=== PATIENT | female | born 1985 | race American Indian/Alaskan Native ===

== ENCOUNTER 2017-04-18 08:32 | Emergency (ER) | payer SELFPAY ==
[2017-04-18 08:45] VITALS: BP 120/75
--- NOTE | 2017-04-18 19:09 | Emergency Department Report ---
Entered by AWA ADAMS, acting as scribe for IRIS WHITE PAC. - General Chief complaint: Skin Rash Stated complaint: RASH/ITCHY BODY Time Seen by Provider: 04/18/17 10:26 Source: patient Mode of arrival: Ambulatory Limitations: No Limitations - History of Present Illness Initial comments: 31 year old female with PMHx of eczema presents to ED with rash to bilateral arms, bilateral LE, and chest for 2 days. Patient reports she has been itching all over her body and states its a different type of rash than usual. Patient states she is allergic to shrimp but ate shrimp 3 days ago and took Benadryl before eating shrimp. Pt has a known allergy to shrimp and states. She rates pain as 10/10 in severity, and describes pain as itchy. Patient also states possible outbreak from getting her nails done 2 weeks ago. Patient denies chest pain, chest tightness, difficulty breathing/swallowing, SOB, fever, chills, or pus/drainage. No known drug allergies, but reports to allergy of shrimp. Pt denies any chance of at this time and denies testing. MD complaint: rash -: days(s) (2) Location: chest, LUE, RUE, LLE, RLE Severity: severe Severity scale (0 -10): 10 Quality: burning Consistency: constant Improves with: none Worsens with: none Context: other (sh) Associated symptoms: denies other symptoms, itching Treatments Prior to Arrival: Benadryl - Related Data Previous Rx's Medication Instructions Recorded Last Taken Type Naproxen [Naprosyn TAB] 500 mg PO BID #20 tablet 06/28/14 Unknown Rx Ondansetron [Zofran Odt] 4 mg PO Q6H #10 tab.rapdis 06/28/14 Unknown Rx Haloperidol [Haldol] 2 mg PO QDAY #30 tablet 02/08/15 Unknown Rx diphenhydrAMINE [Benadryl] 50 mg PO QHS #30 capsule 02/08/15 Unknown Rx Acetaminophen/Codeine [Tylenol #3] 1 tab PO Q6H PRN #10 tab 03/28/15 Unknown Rx Promethazine [Phenergan TAB] 25 mg PO Q6HR PRN #12 tab 03/28/15 Unknown Rx Doxylamine/Pyridoxine HCl 1 each PO Q6HR PRN #30 tablet. 12/10/15 Unknown Rx [Kelley Moore 10-10 mg Tablet] Nitrofurantoin [place]/M-Cryst 100 mg PO Q12HR #13 capsule 12/10/15 Unknown Rx [Macrobid CAP] Vit W-Ca,Fe,FA(<1 mg) 1 each PO QDAY #30 tablet 12/10/15 Unknown Rx [ Vitamins] Hydrocortisone 2.5% [Hytone 2.5% 1 applicatio TP TID PRN #1 tube 04/18/17 Unknown Rx CREAM] predniSONE [Deltasone] 20 mg PO QDAY #5 tab 04/18/17 Unknown Rx Allergies Allergy/AdvReac Type Severity Reaction Status Date / Time No Known Allergies Allergy Verified 02/05/15 14:38 Abscess Boil HPI - HPI Chief Complaint: Skin Rash Stated Complaint: RASH/ITCHY BODY Duration: 3 Days Location: Lower Extremity History: No Fever, No Pain, No Purulent Drainage, No Numbness, No Foreign Body, No Previous History, No Insect Bite Home Medications: Previous Rx's Medication Instructions Recorded Last Taken Type Naproxen [Naprosyn TAB] 500 mg PO BID #20 tablet 06/28/14 Unknown Rx Ondansetron [Zofran Odt] 4 mg PO Q6H #10 tab.rapdis 06/28/14 Unknown Rx Haloperidol [Haldol] 2 mg PO QDAY #30 tablet 02/08/15 Unknown Rx diphenhydrAMINE [Benadryl] 50 mg PO QHS #30 capsule 02/08/15 Unknown Rx Acetaminophen/Codeine [Tylenol #3] 1 tab PO Q6H PRN #10 tab 03/28/15 Unknown Rx Promethazine [Phenergan TAB] 25 mg PO Q6HR PRN #12 tab 03/28/15 Unknown Rx Doxylamine/Pyridoxine HCl 1 each PO Q6HR PRN #30 tablet. 12/10/15 Unknown Rx [Kelley Moore 10-10 mg Tablet] Nitrofurantoin [place]/M-Cryst 100 mg PO Q12HR #13 capsule 12/10/15 Unknown Rx [Macrobid CAP] Vit W-Ca,Fe,FA(<1 mg) 1 each PO QDAY #30 tablet 12/10/15 Unknown Rx [ Vitamins] Hydrocortisone 2.5% [Hytone 2.5% 1 applicatio TP TID PRN #1 tube 04/18/17 Unknown Rx CREAM] predniSONE [Deltasone] 20 mg PO QDAY #5 tab 04/18/17 Unknown Rx Allergies/Adverse Reactions: Allergies Allergy/AdvReac Type Severity Reaction Status Date / Time No Known Allergies Allergy Verified 02/05/15 14:38 ED Review of Systems Comment: All other systems reviewed and negative Constitutional: denies: chills, fever, weakness Respiratory: denies: cough, shortness of breath, wheezing Cardiovascular: denies: chest pain, palpitations Gastrointestinal: denies: abdominal pain, nausea, vomiting, diarrhea Musculoskeletal: denies: back pain, joint swelling, arthralgia Skin: rash. denies: lesions Neurological: denies: headache, weakness, numbness, paresthesias ED Past Medical Hx - Past Medical History Previous Medical History?: Yes Hx Psychiatric Treatment: Yes (schizophrenia) Additional medical history: Vaginal delivery x 3, Miscarriage, excema - Surgical History Past Surgical History?: Yes - Social History Smoking Status: Current Every Day Smoker Substance Use Type: None - Medications Home Medications: Home Medications Medication Instructions Recorded Confirmed Last Taken Type Naproxen [Naprosyn TAB] 500 mg PO BID #20 tablet 06/28/14 Unknown Rx Ondansetron [Zofran Odt] 4 mg PO Q6H #10 tab.rapdis 06/28/14 Unknown Rx Haloperidol [Haldol] 2 mg PO QDAY #30 tablet 02/08/15 Unknown Rx diphenhydrAMINE [Benadryl] 50 mg PO QHS #30 capsule 02/08/15 Unknown Rx Acetaminophen/Codeine [Tylenol #3] 1 tab PO Q6H PRN #10 tab 03/28/15 Unknown Rx Promethazine [Phenergan TAB] 25 mg PO Q6HR PRN #12 tab 03/28/15 Unknown Rx Doxylamine/Pyridoxine HCl 1 each PO Q6HR PRN #30 tablet. 12/10/15 Unknown Rx [Diclegis Dr 10-10 mg Tablet] Nitrofurantoin [place]/M-Cryst 100 mg PO Q12HR #13 capsule 12/10/15 Unknown Rx [Macrobid CAP] Vit W-Ca,Fe,FA(<1 mg) 1 each PO QDAY #30 tablet 12/10/15 Unknown Rx [ Vitamins] Hydrocortisone 2.5% [Hytone 2.5% 1 applicatio TP TID PRN #1 tube 04/18/17 Unknown Rx CREAM] predniSONE [Deltasone] 20 mg PO QDAY #5 tab 04/18/17 Unknown Rx ED Physical Exam - General Limitations: No Limitations General appearance: alert, in no apparent distress - Head Head exam: Present: atraumatic, normocephalic - Neck Neck exam: Present: normal inspection, full ROM. Absent: tenderness, meningismus - Respiratory Respiratory exam: Present: normal lung sounds bilaterally. Absent: respiratory distress, wheezes, rales, rhonchi, stridor - Cardiovascular Cardiovascular Exam: Present: regular rate, normal rhythm, normal heart sounds. Absent: systolic murmur, diastolic murmur, rubs, gallop - GI/Abdominal GI/Abdominal exam: Present: soft, normal bowel sounds. Absent: distended, tenderness, guarding, rebound, rigid, diminished bowel sounds - Extremities Exam Extremities exam: Present: normal inspection, full ROM, normal capillary refill. Absent: tenderness, pedal edema, joint swelling - Back Exam Back exam: Present: normal inspection, full ROM. Absent: tenderness, paraspinal tenderness, vertebral tenderness - Neurological Exam Neurological exam: Present: alert, oriented X3 - Psychiatric Psychiatric exam: Present: normal affect, normal mood - Skin Skin exam: Present: rash (diffuse rash noted on bilateral upper and lower extermities, appears to be thickend skin, no redness, swelling, oozing, or pus noted of the skin ) ED Course Vital Signs 04/18/17 08:40 Temperature 99 F Pulse Rate 91 H Respiratory 16 Rate Blood Pressure 120/75 O2 Sat by Pulse 100 Oximetry ED Medical Decision Making - Medical Decision Making A/P: dermatitis/ allergic reaction 1. pt was given solu-medrol 125 mg injection here in the ED. Pt was given oral prednisone and hydrocortisone cream to apply to the rash. Pt's vitals were stable upon discharge, no signs of resp distress, or anaphylasis, alert and oreinted x 3. No chest pain or chest tightness on exam. No fever or chills. 2. Dermatology referral provided for patient in the ED today. ED Disposition Clinical Impression: Dermatitis, Allergic (intrinsic) eczema Disposition: DC-01 TO HOME OR SELFCARE Is pt being admited?: No Does the pt Need Aspirin: No Condition: Good Instructions: Contact Dermatitis (ED), Eczema (ED) Additional Instructions: please start the oral steriod tomorrow, avoid NSAIDs with this medication. This includes: any advil, aleve, or motorins. Please follow-up with PCP in 3-5 days. Return to the ED if you develop any chest pain, tightness, fever, or chills or any other acute worsening. Prescriptions: Hydrocortisone 2.5% [Hytone 2.5% CREAM] 1 applicatio TP TID PRN #1 tube PRN Reason: Rash predniSONE [Deltasone] 20 mg PO QDAY #5 tab Referrals: PRIMARY CARE,MD [Primary Care Provider] - 3-5 Days ROSAURA SANDERS MD [Staff Physician] - 3-5 Days [facility] [place] - 3-5 Days Forms: Work/School Release Form(ED) This documentation as recorded by the BRYAN mcnair PEARL,accurately reflects the service I personally performed and the decisions made by CHRISTOPHER flowers KRISHNA S. , PAC.
== END 2017-04-18 10:57 | disposition home or self-care (01) ==
LOC: ED 08:32
DX: L30.9 Dermatitis, unspecified (principal); L20.84 Intrinsic (allergic) eczema; F20.9 Schizophrenia, unspecified; F17.200 Nicotine dependence, unspecified, uncomplicated
CPT/HCPCS: 96372; 99281; J2930

== ENCOUNTER 2017-08-26 13:44 | Emergency (ER) | payer SELFPAY ==
[2017-08-26 14:12] VITALS: BP 109/66
== END 2017-08-27 07:21 | disposition left against medical advice (07) ==
LOC: ED 13:44
DX: R21 Rash and other nonspecific skin eruption (principal); Z53.21 Procedure and treatment not carried out due to patient leaving prior to being seen by health care provider

== ENCOUNTER 2017-11-04 17:36 | Emergency (ER) | payer MEDICAID ==
[2017-11-04] MEDS ORDERED: ZOFRAN ODT PO ONE (18:13)
[2017-11-04] MEDS ORDERED: TYLENOL PO ONE (18:13)
--- NOTE | 2017-11-04 18:19 | Emergency Department Report ---
HPI - General Chief Complaint: Back Pain/Injury Time Seen by Provider: 11/04/17 17:57 - HPI HPI: 32-year-old 5 para 31 miscarriage -[place] female that presents to the emergency room complaining of back pain with nausea and vomiting since last night. Patient reports that she is 6 weeks . She reports that she 's had flank pain left greater than right with some mild dysuria. Patient reports that the pain is worse with deep breathing. She denies any history of ectopic pregnancies. She reports she said nothing for pain. [facility]. ED Past Medical Hx - Past Medical History Hx Psychiatric Treatment: Yes (schizophrenia) Additional medical history: Vaginal delivery x 3, Miscarriage, excema - Social History Smoking Status: Current Some Day Smoker Substance Use Type: None - Medications Home Medications: Home Medications Medication Instructions Recorded Confirmed Last Taken Type Naproxen [Naprosyn TAB] 500 mg PO BID #20 tablet 06/28/14 Unknown Rx Ondansetron [Zofran Odt] 4 mg PO Q6H #10 tab.rapdis 06/28/14 Unknown Rx Haloperidol [Haldol] 2 mg PO QDAY #30 tablet 02/08/15 Unknown Rx diphenhydrAMINE [Benadryl] 50 mg PO QHS #30 capsule 02/08/15 Unknown Rx Acetaminophen/Codeine [Tylenol #3] 1 tab PO Q6H PRN #10 tab 03/28/15 Unknown Rx Promethazine [Phenergan TAB] 25 mg PO Q6HR PRN #12 tab 03/28/15 Unknown Rx Doxylamine Succinate/Vit B6 1 each PO Q6HR PRN #30 tablet. 12/10/15 Unknown Rx [Kelley Moore 10-10 mg Tablet] Nitrofurantoin [place]/M-Cryst 100 mg PO Q12HR #13 capsule 12/10/15 Unknown Rx [Macrobid CAP] Vit Calc,Iron,Folic 1 each PO QDAY #30 tablet 12/10/15 Unknown Rx [ Vitamins] Hydrocortisone 2.5% [Hytone 2.5% 1 applicatio TP TID PRN #1 tube 04/18/17 Unknown Rx CREAM] predniSONE [Deltasone] 20 mg PO QDAY #5 tab 04/18/17 Unknown Rx ED Review of Systems ROS: Stated complaint: BACK PAIN Other details as noted in HPI Constitutional: denies: chills, fever Eyes: denies: eye pain, eye discharge, vision change ENT: denies: ear pain, throat pain Respiratory: denies: cough, shortness of breath, wheezing Cardiovascular: denies: chest pain, palpitations Endocrine: no symptoms reported Gastrointestinal: nausea, vomiting. denies: abdominal pain, diarrhea Genitourinary: dysuria Musculoskeletal: back pain Skin: denies: rash, lesions Neurological: denies: headache, weakness, paresthesias Psychiatric: denies: anxiety, depression Hematological/Lymphatic: denies: easy bleeding, easy bruising Physical Exam - Physical Exam Vital Signs: Vital Signs 11/04/17 17:41 Temperature 98.1 F Pulse Rate 85 Respiratory 20 Rate Blood Pressure 118/51 O2 Sat by Pulse 100 Oximetry General: Alert and oriented no acute distress does appear to be in pain. Nontoxic in appearance. Physical Exam: GENERAL APPEARANCE: Well developed, well nourished, in no acute distress. SKIN: Inspection of the skin reveals no rashes, ulcerations or petechiae. HEENT: The sclerae were anicteric and conjunctivae were pink and moist. Extraocular movements were intact and pupils were equal, round, and reactive to light with normal accommodation. External inspection of the ears and nose showed no scars, lesions, or masses. Lips, teeth, and gums showed normal mucosa. The oral mucosa, hard and soft palate, tongue and posterior pharynx were normal. NECK: Supple and symmetric. There was no thyroid enlargement, CHEST: Normal AP diameter and normal contour without any kyphoscoliosis. LUNGS: Auscultation of the lungs revealed normal breath sounds without any other adventitious sounds or rubs. CARDIOVASCULAR: There was a regular rate and rhythm without any murmurs, gallops , rubs. The carotid pulses were normal and 2+ bilaterally without bruits. Peripheral pulses were 2+ and symmetric. ABDOMEN: Soft and nontender with normal bowel sounds. LYMPH NODES: No lymphadenopathy was appreciated in the neck, axillae or groin. MUSCULOSKELETAL: Gait was normal. There was no tenderness or effusions noted. Muscle strength and tone were normal. Bilateral CVA tenderness EXTREMITIES: No cyanosis, clubbing or edema. NEUROLOGIC: Alert and oriented x 3. Normal affect. Gait was normal. ED Course Vital Signs 11/04/17 17:41 Temperature 98.1 F Pulse Rate 85 Respiratory 20 Rate Blood Pressure 118/51 O2 Sat by Pulse 100 Oximetry ED Medical Decision Making - Radiology Data Impression #1. Single living intrauterine gestation at approximate 6 weeks in 2 days. #2. heart rate is 83 bpm consistent with bradycardic. #3 EDC by ultrasound 06/28/2018. - Medical Decision Making History of being evaluated by this provider [place]. Discussed the patient on 0 some Zofran for the nausea some Tylenol for the pain ordered a urinalysis and urine culture and urine test. Concern for possible pyelonephritis. Critical care attestation.: If time is entered above; I have spent that time in minutes in the direct care of this critically ill patient, excluding procedure time. ED Disposition Clinical Impression: Back pain Qualifiers: Back pain location: low back pain Chronicity: unspecified Back pain laterality : bilateral Sciatica presence: unspecified whether sciatica present Qualified Code(s): M54.5 - Low back pain Disposition: DC- TO HOME OR SELFCARE Is pt being admited?: No Does the pt Need Aspirin: No Condition: Stable Instructions: Acute Low Back Pain (ED) Additional Instructions: Please continue with Tylenol for pain. Is very importantly to follow up with Dr. Dunbar your [employer] [facility]. Referrals: PRIMARY CARE, [Primary Care Provider] - 3-5 Days [facility] [Provider Group] - 3-5 Days Forms: Work/School Release Form(ED)
[2017-11-04 18:20] LABS: Bacteria,Urine 1+ /HPF (Negative); Bilirubin,Urine NEG (Negative); Blood,Urine SM (Negative); Color,Urine Yellow (Yellow); Protein,Urine <15 mg/dL mg/dL (Negative); WBC,Urine < 1.0 /HPF (0.0-6.0)
[2017-11-04 18:29] LABS: HCG Qualitative,Urine Positive (Negative)
--- NOTE | 2017-11-04 21:18 | Ultrasound Report ---
FINAL REPORT PROCEDURE: US OB TRANSVAGINAL TECHNIQUE: Real-time transvaginal sonography of the uterus, placenta, amniotic fluid, adnexa, and fetus was performed with image documentation. Measurements were obtained to determine age/size. M-mode Doppler was used to document heartbeat. CPT 24590 HISTORY: CVA pain with tenderness bilateral COMPARISON: No prior studies are available for comparison. FINDINGS: CRL: 5mm, which corresponds to a gestational age of: 6weeks, 2 days. Yolk Sac: Normal. Embryonic Cardiac Activity: 83 beats per minute Gestational Sac: Normal. Right Ovary: Measures 3.1 x 2.2 x 2.0 centimeters and appears unremarkable. Left Ovary: Measures 1.9 x 1.2 x 2.4 centimeters and appears unremarkable. Estimated delivery date: 06/28/2018 IMPRESSION: 1. Single living intrauterine gestation at approximately 6 weeks and 2 days 2. heart rate is 83 beats per minute consistent with bradycardia. 3. EDC by US 06/28/2018.
--- NOTE | 2017-11-04 21:20 | Ultrasound Report ---
FINAL REPORT PROCEDURE: US OB < = 14 WEEKS FETUS TECHNIQUE: Real-time transabdominal sonography of the uterus, placenta, amniotic fluid, adnexa, and fetus was performed with image documentation. Measurements were obtained to determine age/size. M-mode Doppler was used to document heartbeat. CPT 56773 HISTORY: CVA pain with tenderness bilateral COMPARISON: No prior studies are available for comparison. FINDINGS: CRL: 5mm, which corresponds to a gestational age of: 6weeks, 2 days. Yolk Sac: Normal. Embryonic Cardiac Activity: 83 beats per minute Gestational Sac: Normal. Right Ovary: Measures 3.1 x 2.2 x 2.0 centimeters and appears unremarkable. Left Ovary: Measures 1.9 x 1.2 x 2.4 centimeters and appears unremarkable. Estimated delivery date: 06/28/2018 IMPRESSION: 1. Single living intrauterine gestation at approximately 6 weeks and 2 days 2. heart rate is 83 beats per minute consistent with bradycardia. 3. EDC by US 06/28/2018.
[2017-11-04 21:44] VITALS: BP 107/65
== END 2017-11-04 21:46 | disposition home or self-care (01) ==
LOC: ED 17:36
DX: O26.891 Other specified pregnancy related conditions, first trimester (principal); M54.5 Low back pain; R30.0 Dysuria; R10.9 Unspecified abdominal pain; O21.9 Vomiting of pregnancy, unspecified; O99.341 Other mental disorders complicating pregnancy, first trimester; F20.9 Schizophrenia, unspecified; O99.331 Smoking (tobacco) complicating pregnancy, first trimester; F17.200 Nicotine dependence, unspecified, uncomplicated; Z3A.01 Less than 8 weeks gestation of pregnancy
CPT/HCPCS: 76801; 76817; 81001; 81025; 99284; Q0162

== ENCOUNTER 2017-12-08 07:30 | Emergency (ER) | payer MEDICAID ==
[2017-12-08 08:30] VITALS: BP 110/64
[2017-12-08 09:14] LABS: Basophils # (Auto) 0.1 K/mm3 (0.0-0.1); Basophils % (Auto) 0.6 % (0.0-1.8); Eosinophils # (Auto) 0.1 K/mm3 (0.0-0.4); Eosinophils % (Auto) 1.4 % (0.0-4.3); Hemoglobin 12.9 gm/dl (10.1-14.3); Lymphocytes # (Auto) 2.7 K/mm3 (1.2-5.4); Lymphocytes % (Auto) 25.6 % (13.4-35.0); Mean Corpuscular HGB Conc 35 % (30-34); Mean Corpuscular Hemoglobin 29 pg (28-32); Mean Corpuscular Volume 84 fl (79-97); Monocytes # (Auto) 0.7 K/mm3 (0.0-0.8); Monocytes % (Auto) 6.8 % (0.0-7.3); Platelet Count 200 K/mm3 (140-440); Red Cell Distribution Width 14.2 % (13.2-15.2)
[2017-12-08 09:27] LABS: BUN/Creatinine Ratio 14; Blood Urea Nitrogen 7 mg/dL (7-17); Calcium 9.4 mg/dL (8.4-10.2); Hemolysis Index 7
== END 2017-12-08 11:26 ==
LOC: ED 07:30
DX: N93.9 Abnormal uterine and vaginal bleeding, unspecified (principal); Z53.21 Procedure and treatment not carried out due to patient leaving prior to being seen by health care provider
CPT/HCPCS: 36415; 80048; 84703; 85025; 86850; 86900; 86901

== ENCOUNTER 2018-02-11 02:55 | Emergency (ER) | payer OTHER, MEDICAID ==
[2018-02-11] MEDS ORDERED: TYLENOL ONE (06:30)
[2018-02-11] MEDS ORDERED: TYLENOL PO ONE (06:32)
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
[2018-02-11 07:43] VITALS: BP 126/74
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
== END 2018-02-11 08:39 | disposition home or self-care (01) ==
LOC: ED 02:55
DX: M54.2 Cervicalgia (principal); M79.1 Myalgia; F20.9 Schizophrenia, unspecified; V89.2XXA Person injured in unspecified motor-vehicle accident, traffic, initial encounter; Y93.89 Activity, other specified; Y92.89 Other specified places as the place of occurrence of the external cause; Y99.8 Other external cause status
CPT/HCPCS: 72040; 93005; 93010; 99283

== ENCOUNTER 2018-03-24 18:56 | Emergency (ER) | payer MEDICAID, OTHER ==
[2018-03-24 19:03] VITALS: BP 137/87
[2018-03-24 19:34] LABS: Basophils # (Auto) 0.1 K/mm3 (0.0-0.1); Basophils % (Auto) 0.8 % (0.0-1.8); Eosinophils # (Auto) 0.2 K/mm3 (0.0-0.4); Eosinophils % (Auto) 1.7 % (0.0-4.3); Hematocrit 35.5 % (30.3-42.9); Hemoglobin 11.3 gm/dl (10.1-14.3); Lymphocytes % (Auto) 27.6 % (13.4-35.0); Mean Corpuscular HGB Conc 32 % (30-34); Monocytes # (Auto) 0.7 K/mm3 (0.0-0.8); Monocytes % (Auto) 6.2 % (0.0-7.3); Platelet Count 283 K/mm3 (140-440); Red Blood Count 5.35 M/mm3 (3.65-5.03)
[2018-03-24 19:37] LABS: Mean Corpuscular Hemoglobin 21 pg (28-32); Mean Corpuscular Volume 66 fl (79-97); Red Cell Distribution Width 22.9 % (13.2-15.2)
[2018-03-24 19:57] LABS: BUN/Creatinine Ratio 13; Blood Urea Nitrogen 12 mg/dL (7-17); Calcium 10.2 mg/dL (8.4-10.2); Hemolysis Index 21
== END 2018-03-24 22:19 | disposition left against medical advice (07) ==
LOC: ED 18:56
DX: R07.89 Other chest pain (principal); Z53.21 Procedure and treatment not carried out due to patient leaving prior to being seen by health care provider
CPT/HCPCS: 36415; 80048; 84484; 84703; 85025; 85379; 93005; 93010

== ENCOUNTER 2018-03-26 16:12 | Emergency (ER) | payer MEDICAID ==
[2018-03-26] MEDS ORDERED: ASPIRIN PO ONE (16:31)
[2018-03-26 17:12] LABS: Hematocrit 32.4 % (30.3-42.9); Hemoglobin 10.8 gm/dl (10.1-14.3); Mean Corpuscular HGB Conc 33 % (30-34); Platelet Count 272 K/mm3 (140-440); Red Blood Count 4.95 M/mm3 (3.65-5.03)
[2018-03-26 17:17] LABS: Mean Corpuscular Volume 65 fl (79-97)
[2018-03-26 17:18] LABS: Basophils # (Auto) 0.1 K/mm3 (0.0-0.1); Basophils % (Auto) 0.5 % (0.0-1.8); Eosinophils # (Auto) 0.1 K/mm3 (0.0-0.4); Eosinophils % (Auto) 0.5 % (0.0-4.3); Lymphocytes # (Auto) 2.6 K/mm3 (1.2-5.4); Lymphocytes % (Auto) 24.3 % (13.4-35.0); Mean Corpuscular Hemoglobin 22 pg (28-32); Monocytes # (Auto) 0.6 K/mm3 (0.0-0.8); Monocytes % (Auto) 5.9 % (0.0-7.3); Red Cell Distribution Width 22.9 % (13.2-15.2)
[2018-03-26 17:38] LABS: BUN/Creatinine Ratio 12; Blood Urea Nitrogen 7 mg/dL (7-17); Calcium 9.7 mg/dL (8.4-10.2); Hemolysis Index 5
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
[2018-03-26] MEDS ORDERED: ULTRAM PO ONE (23:12)
[2018-03-27] MEDS ORDERED: NORCO 5/325 PO ONE (00:58)
--- NOTE | 2018-03-27 02:18 | Emergency Department Report ---
ED Chest Pain HPI - General Chief Complaint: Chest Pain Stated Complaint: CHEST PAIN/SOB Time Seen by Provider: 03/27/18 00:58 Source: patient Mode of arrival: Ambulatory Limitations: No Limitations - History of Present Illness Initial Comments: 5 hours of left-sided chest pain that radiates to her back. The pain is constant and worse with movement. Pleuritic. Exertional. She is on Depo- Provera for control. No history of DVT or PE. Smokes half pack per day. Afebrile. No cough. No family history of ACS. She has never had these symptoms before. Severity scale (0 -10): 9 - Related Data Previous Rx's Medication Instructions Recorded Last Taken Type Naproxen [Naprosyn TAB] 500 mg PO BID #20 tablet 06/28/14 Unknown Rx Ondansetron [Zofran Odt] 4 mg PO Q6H #10 tab.rapdis 06/28/14 Unknown Rx Haloperidol [Haldol] 2 mg PO QDAY #30 tablet 02/08/15 Unknown Rx diphenhydrAMINE [Benadryl] 50 mg PO QHS #30 capsule 02/08/15 Unknown Rx Acetaminophen/Codeine [Tylenol #3] 1 tab PO Q6H PRN #10 tab 03/28/15 Unknown Rx Promethazine [Phenergan TAB] 25 mg PO Q6HR PRN #12 tab 03/28/15 Unknown Rx Doxylamine Succinate/Vit B6 1 each PO Q6HR PRN #30 tablet. 12/10/15 Unknown Rx [Diclegis Dr 10-10 mg Tablet] Nitrofurantoin Perkins/M-Cryst 100 mg PO Q12HR #13 capsule 12/10/15 Unknown Rx [Macrobid CAP] Vit Calc,Iron,Folic 1 each PO QDAY #30 tablet 12/10/15 Unknown Rx [ Vitamins] Hydrocortisone 2.5% [Hytone 2.5% 1 applicatio TP TID PRN #1 tube 04/18/17 Unknown Rx CREAM] predniSONE [Deltasone] 20 mg PO QDAY #5 tab 04/18/17 Unknown Rx Cyclobenzaprine [Flexeril] 10 mg PO TID PRN #12 tablet 02/11/18 Unknown Rx Ibuprofen [Motrin] 600 mg PO Q8H PRN #20 tablet 02/11/18 Unknown Rx HYDROcodone/APAP 5-325 [[place] 1 each PO Q6HR PRN #5 tablet 03/27/18 Unknown Rx 5/325] Allergies Allergy/AdvReac Type Severity Reaction Status Date / Time No Known Allergies Allergy Verified 03/24/18 18:59 Heart Score - HEART Score History: Slightly suspicious EKG: Normal Age: < 45 Risk factors: 1-2 risk factors Troponin: < normal limit HEART Score: 1 ED Review of Systems ROS: Stated complaint: CHEST PAIN/SOB Other details as noted in HPI Comment: All other systems reviewed and negative Respiratory: shortness of breath Cardiovascular: chest pain ED Past Medical Hx - Past Medical History Previous Medical History?: Yes Hx Psychiatric Treatment: Yes (schizophrenia) Additional medical history: Vaginal delivery x 3, Miscarriage, excema - Surgical History Past Surgical History?: No - Social History Smoking Status: Current Every Day Smoker Substance Use Type: None - Medications Home Medications: Home Medications Medication Instructions Recorded Confirmed Last Taken Type Naproxen [Naprosyn TAB] 500 mg PO BID #20 tablet 06/28/14 Unknown Rx Ondansetron [Zofran Odt] 4 mg PO Q6H #10 tab.rapdis 06/28/14 Unknown Rx Haloperidol [Haldol] 2 mg PO QDAY #30 tablet 02/08/15 Unknown Rx diphenhydrAMINE [Benadryl] 50 mg PO QHS #30 capsule 02/08/15 Unknown Rx Acetaminophen/Codeine [Tylenol #3] 1 tab PO Q6H PRN #10 tab 03/28/15 Unknown Rx Promethazine [Phenergan TAB] 25 mg PO Q6HR PRN #12 tab 03/28/15 Unknown Rx Doxylamine Succinate/Vit B6 1 each PO Q6HR PRN #30 tablet. 12/10/15 Unknown Rx [Dicomero Moore 10-10 mg Tablet] Nitrofurantoin [place]/M-Cryst 100 mg PO Q12HR #13 capsule 12/10/15 Unknown Rx [Macrobid CAP] Vit Calc,Iron,Folic 1 each PO QDAY #30 tablet 12/10/15 Unknown Rx [ Vitamins] Hydrocortisone 2.5% [Hytone 2.5% 1 applicatio TP TID PRN #1 tube 04/18/17 Unknown Rx CREAM] predniSONE [Deltasone] 20 mg PO QDAY #5 tab 04/18/17 Unknown Rx Cyclobenzaprine [Flexeril] 10 mg PO TID PRN #12 tablet 02/11/18 Unknown Rx Ibuprofen [Motrin] 600 mg PO Q8H PRN #20 tablet 02/11/18 Unknown Rx HYDROcodone/APAP 5-325 [[place] 1 each PO Q6HR PRN #5 tablet 03/27/18 Unknown Rx 5/325] ED Physical Exam - General Limitations: No Limitations General appearance: alert, in no apparent distress - Head Head exam: Present: atraumatic, normocephalic - Eye Eye exam: Present: normal appearance - ENT ENT exam: Present: mucous membranes moist - Neck Neck exam: Present: normal inspection - Respiratory Respiratory exam: Present: normal lung sounds bilaterally. Absent: respiratory distress - Cardiovascular Cardiovascular Exam: Present: regular rate, normal rhythm, other (reproducible left chest tenderness). Absent: systolic murmur, diastolic murmur, rubs, gallop , JVD - GI/Abdominal GI/Abdominal exam: Present: soft, normal bowel sounds. Absent: distended, tenderness, guarding, rebound, rigid - Extremities Exam Extremities exam: Present: normal inspection. Absent: pedal edema - Back Exam Back exam: Present: normal inspection - Neurological Exam Neurological exam: Present: alert, oriented X3 - Psychiatric Psychiatric exam: Present: normal affect, normal mood - Skin Skin exam: Present: warm, dry, intact, normal color. Absent: rash ED Course Vital Signs 03/26/18 03/26/18 16:27 23:15 Temperature 98.3 F 98.5 F Pulse Rate 96 H 76 Respiratory 16 20 Rate Blood Pressure 111/71 Blood Pressure 118/83 [Left] O2 Sat by Pulse 96 98 Oximetry ED Medical Decision Making - Lab Data Result diagrams: 03/26/18 16:57 03/26/18 16:57 - EKG Data -: EKG Interpreted by Tn EKG shows normal: sinus rhythm, axis, intervals, QRS complexes, ST-T waves Rate: normal - EKG Data Interpretation: no acute changes - Radiology Data Radiology results: report reviewed, image reviewed - Medical Decision Making 32-year-old female with no significant past medical history presents to the ER with reproducible left chest pain. EKG is nonischemic. Chest x-ray is unremarkable. Lab work with negative delta troponin. Reproducible chest pain on exam. Likely presentation is related to costochondritis versus cold chest wall muscle versus microfracture of her left ribs. Patient stated that she she was adjusted by a chiropractor prior to onset of these symptoms 3 days ago. No evidence of pneumothorax on chest x-ray. Patient is perk negative. Low suspicion for PE. - Differential Diagnosis rib fracture, pneumothorax, ACS, PE, pneumonia, costochondritis Critical care attestation.: If time is entered above; I have spent that time in minutes in the direct care of this critically ill patient, excluding procedure time. ED Disposition Clinical Impression: Chest pain Disposition: DC-01 TO HOME OR SELFCARE Is pt being admited?: No Does the pt Need Aspirin: No Condition: Stable Instructions: Chest Pain (ED), Costochondritis (ED) Prescriptions: HYDROcodone/APAP 5-325 [[place] 5/325] 1 each PO Q6HR PRN #5 tablet PRN Reason: Pain Referrals: PRIMARY CARE, [Primary Care Provider] - 3-5 Days
[2018-03-27] MEDS ORDERED: LIDODERM 5% TD SCH (03:30)
[2018-03-27 03:58] VITALS: BP 117/61
== END 2018-03-27 03:50 | disposition home or self-care (01) ==
LOC: ED 16:12
DX: R07.89 Other chest pain (principal); F20.9 Schizophrenia, unspecified; F17.200 Nicotine dependence, unspecified, uncomplicated; Z79.899 Other long term (current) drug therapy
CPT/HCPCS: 36415; 71046; 80048; 84484; 85025; 93005; 93010

== ENCOUNTER 2018-05-28 19:05 | Emergency (ER) | payer MEDICAID ==
[2018-05-28] MEDS ORDERED: TYLENOL PO ONE (21:06)
[2018-05-28] MEDS ORDERED: TYLENOL ONE (21:10)
[2018-05-28 22:59] LABS: HCG Qualitative,Urine Negative (Negative)
--- NOTE | 2018-05-28 23:28 | Emergency Department Report ---
ED Fall HPI - General Chief Complaint: Fall Stated Complaint: LEG/HAND PAIN FALL DOWN STAIRS Time Seen by Provider: 05/28/18 23:26 Source: patient Mode of arrival: Ambulatory - History of Present Illness Initial Comments: This is a 32-year-old female nontoxic, well nourished in appearance, no acute signs of distress presents to the ED with c/o of left thumb pain, right knee pain, right leg pain, and right ankle pain status post fall that occurred yesterday afternoon. Patient stated she tripped walking down the stairs about 8 stairs. Patient denies back pain or neck pain. Patient denies any head trauma. Patient denies any chest pain, shortness of breath, fever, chills, nausea, vomiting, headache, stiff neck, numbness or tingling. Patient denies any allergies. MD Complaint: fall -: days(s) (1) Fall From: down stairs (#) (8) Place Fall Occurred: home Loss of Consciousness: none Symptoms Prior to Fall: none Severity: mild Severity scale (0 -10): 8 Quality: aching Context: tripped/slipped Associated Symptoms: denies. denies: headache, neck pain, numbness, weakness, chest paint, shortness of breath, abdominal pain, hematuria, unable to walk, lightheaded, vertigo, confusion - Related Data Previous Rx's Medication Instructions Recorded Last Taken Type Naproxen [Naprosyn TAB] 500 mg PO BID #20 tablet 06/28/14 Unknown Rx Ondansetron [Zofran Odt] 4 mg PO Q6H #10 tab.rapdis 06/28/14 Unknown Rx Haloperidol [Haldol] 2 mg PO QDAY #30 tablet 02/08/15 Unknown Rx diphenhydrAMINE [Benadryl] 50 mg PO QHS #30 capsule 02/08/15 Unknown Rx Acetaminophen/Codeine [Tylenol #3] 1 tab PO Q6H PRN #10 tab 03/28/15 Unknown Rx Promethazine [Phenergan TAB] 25 mg PO Q6HR PRN #12 tab 03/28/15 Unknown Rx Doxylamine Succinate/Vit B6 1 each PO Q6HR PRN #30 tablet. 12/10/15 Unknown Rx [Kelley Moore 10-10 mg Tablet] Nitrofurantoin [place]/M-Cryst 100 mg PO Q12HR #13 capsule 12/10/15 Unknown Rx [Macrobid CAP] Vit Calc,Iron,Folic 1 each PO QDAY #30 tablet 12/10/15 Unknown Rx [ Vitamins] Hydrocortisone 2.5% [Hytone 2.5% 1 applicatio TP TID PRN #1 tube 04/18/17 Unknown Rx CREAM] predniSONE [Deltasone] 20 mg PO QDAY #5 tab 04/18/17 Unknown Rx Cyclobenzaprine [Flexeril] 10 mg PO TID PRN #12 tablet 02/11/18 Unknown Rx Ibuprofen [Motrin] 600 mg PO Q8H PRN #20 tablet 02/11/18 Unknown Rx HYDROcodone/APAP 5-325 [[place] 1 each PO Q6HR PRN #5 tablet 03/27/18 Unknown Rx 5/325] Acetaminophen/Codeine [Tylenol 1 tab PO Q6H PRN #12 tab 05/29/18 Unknown Rx /Codeine # 3 tab] Ibuprofen [Motrin] 600 mg PO Q8H PRN #20 tablet 05/29/18 Unknown Rx Allergies Allergy/AdvReac Type Severity Reaction Status Date / Time No Known Allergies Allergy Verified 03/24/18 18:59 ED Review of Systems ROS: Stated complaint: LEG/HAND PAIN FALL DOWN STAIRS Other details as noted in HPI Constitutional: denies: chills, fever Eyes: denies: eye pain, eye discharge, vision change ENT: denies: ear pain, throat pain Respiratory: denies: cough, shortness of breath, wheezing Cardiovascular: denies: chest pain, palpitations Endocrine: no symptoms reported Gastrointestinal: denies: abdominal pain, nausea, diarrhea Genitourinary: denies: urgency, dysuria, discharge Musculoskeletal: denies: back pain, joint swelling, arthralgia Skin: denies: rash, lesions Neurological: denies: headache, weakness, paresthesias Psychiatric: denies: anxiety, depression Hematological/Lymphatic: denies: easy bleeding, easy bruising ED Past Medical Hx - Past Medical History Previous Medical History?: No Hx Psychiatric Treatment: Yes (schizophrenia) Additional medical history: Vaginal delivery x 3, Miscarriage, excema - Surgical History Past Surgical History?: Yes Additional Surgical History: D&C - Social History Smoking Status: Current Every Day Smoker Substance Use Type: None - Medications Home Medications: Home Medications Medication Instructions Recorded Confirmed Last Taken Type Naproxen [Naprosyn TAB] 500 mg PO BID #20 tablet 06/28/14 Unknown Rx Ondansetron [Zofran Odt] 4 mg PO Q6H #10 tab.rapdis 06/28/14 Unknown Rx Haloperidol [Haldol] 2 mg PO QDAY #30 tablet 02/08/15 Unknown Rx diphenhydrAMINE [Benadryl] 50 mg PO QHS #30 capsule 02/08/15 Unknown Rx Acetaminophen/Codeine [Tylenol #3] 1 tab PO Q6H PRN #10 tab 03/28/15 Unknown Rx Promethazine [Phenergan TAB] 25 mg PO Q6HR PRN #12 tab 03/28/15 Unknown Rx Doxylamine Succinate/Vit B6 1 each PO Q6HR PRN #30 tablet.dr 12/10/15 Unknown Rx [Diclegis Dr 10-10 mg Tablet] Nitrofurantoin [place]/M-Cryst 100 mg PO Q12HR #13 capsule 12/10/15 Unknown Rx [Macrobid CAP] Vit Calc,Iron,Folic 1 each PO QDAY #30 tablet 12/10/15 Unknown Rx [ Vitamins] Hydrocortisone 2.5% [Hytone 2.5% 1 applicatio TP TID PRN #1 tube 04/18/17 Unknown Rx CREAM] predniSONE [Deltasone] 20 mg PO QDAY #5 tab 04/18/17 Unknown Rx Cyclobenzaprine [Flexeril] 10 mg PO TID PRN #12 tablet 02/11/18 Unknown Rx Ibuprofen [Motrin] 600 mg PO Q8H PRN #20 tablet 02/11/18 Unknown Rx HYDROcodone/APAP 5-325 [[place] 1 each PO Q6HR PRN #5 tablet 03/27/18 Unknown Rx 5/325] Acetaminophen/Codeine [Tylenol 1 tab PO Q6H PRN #12 tab 05/29/18 Unknown Rx /Codeine # 3 tab] Ibuprofen [Motrin] 600 mg PO Q8H PRN #20 tablet 05/29/18 Unknown Rx ED Physical Exam - General Limitations: No Limitations General appearance: alert, in no apparent distress - Head Head exam: Present: atraumatic, normocephalic - Eye Eye exam: Present: normal appearance - ENT ENT exam: Present: normal exam, mucous membranes moist - Neck Neck exam: Present: normal inspection, full ROM. Absent: tenderness, meningismus, lymphadenopathy - Respiratory Respiratory exam: Present: normal lung sounds bilaterally. Absent: respiratory distress, wheezes, rales, rhonchi, stridor, chest wall tenderness, accessory muscle use, decreased breath sounds, prolonged expiratory - Cardiovascular Cardiovascular Exam: Present: regular rate, normal rhythm, normal heart sounds. Absent: irregular rhythm, systolic murmur, diastolic murmur, rubs, gallop - GI/Abdominal GI/Abdominal exam: Present: soft, normal bowel sounds. Absent: distended, tenderness, guarding, rebound, rigid, diminished bowel sounds - Rectal Rectal exam: Present: deferred - Extremities Exam Extremities exam: Present: normal inspection, full ROM, tenderness, normal capillary refill. Absent: joint swelling - Expanded Upper Extremity Exam Left General: Present: normal inspection Shoulder Exam: Present: normal inspection, full ROM. Absent: tenderness, swelling Upper Arm exam: Present: normal inspection, full ROM. Absent: tenderness, swelling Elbow exam: Present: normal inspection, full ROM. Absent: tenderness, swelling Forearm Wrist exam: Present: normal inspection, full ROM. Absent: tenderness, swelling Hand Wrist exam: Present: normal inspection, full ROM, tenderness. Absent: swelling, abrasion, laceration, ecchymosis, deformity, crepidus, dislocation, erythema, amputation, nail avulsion, subungual hematoma Hand L/R Back: 1 - pain here Neuro motor exam: Present: wrist extension intact, thumb opposition intact, thumb IP flexion intact, thumb adduction intact, fingers 2-5 abduction intact Neurosensory exam: Present: 2-point discrimination, radial nerve intact, ulnar nerve intact, median nerve intact Vascular: Present: vascular compromise, normal capillary refill, radial pulse, brachial pulse, ulnar pulse - Expanded Lower Extremity Exam Right Hip exam: Present: normal inspection, full ROM, external rotation, internal rotation, pelvic stability. Absent: tenderness, swelling, abrasion, laceration , ecchymosis, deformity, crepidus, dislocation, erythema, shortening Upper Leg exam: Present: normal inspection, full ROM. Absent: tenderness, swelling Knee exam: Present: normal inspection, full ROM, tenderness, full knee extension. Absent: swelling, abrasion, laceration, ecchymosis, deformity, crepidus, dislocation, erythema, effusion, pain w/ pronation/supination, posterior draw sign, pain/laxity with valgus, pain/laxity with varus Lower Leg exam: Present: normal inspection, full ROM, tenderness. Absent: swelling, abrasion, laceration, ecchymosis, deformity, crepidus, dislocation, erythema, palpable cord, Ene's sign Ankle exam: Present: normal inspection, full ROM, tenderness. Absent: swelling , abrasion, laceration, ecchymosis, deformity, crepidus, dislocation, erythema, anterior draw sign Foot/Toe exam: Present: normal inspection, full ROM. Absent: tenderness, swelling, abrasion, laceration, ecchymosis, deformity, crepidus, dislocation, erythema, amputation, puncture wound, foreign body, calcaneal tenderness, tenderness at base of 5th metatarsal, nail avulsion, subungual hematoma Neuro vascular tendon exam: Present: no vascular compromise. Absent: pulse deficit, abnormal cap refill, motor deficit, sensory deficit, tendon deficit, extremity cold to touch, pallor, abnormal 2-point discrimination, decreased fine /light touch, foot drop, peroneal nerve deficit, significant pain with passive ROM of distal joint Gait: Positive: observed and limited by pain - Back Exam Back exam: Present: normal inspection, full ROM. Absent: tenderness, CVA tenderness (R), CVA tenderness (L), muscle spasm, paraspinal tenderness, vertebral tenderness, rash noted - Neurological Exam Neurological exam: Present: alert, oriented X3, normal gait - Psychiatric Psychiatric exam: Present: normal affect, normal mood - Skin Skin exam: Present: warm, dry, intact, normal color. Absent: rash ED Course Vital Signs 05/28/18 05/28/18 19:36 20:58 Temperature 98.5 F 98.5 F Pulse Rate 99 H 100 H Respiratory 20 18 Rate Blood Pressure 122/76 122/76 O2 Sat by Pulse 100 100 Oximetry - Reevaluation(s) Reevaluation #1: 05/29/18 00:32 Patient is speaking in full sentences with no signs of distress noted. ED Medical Decision Making - Medical Decision Making This is a 32-year-old female that presents with left finger strain and right leg strain with possible knee fracture. Patient is stable and was examined by me. I referred patient to an orthopedic doctor for further evaluation for possible MRI. X-ray has been obtained and dictated by the radiologist. Patient is notified of the x-ray report with noted by the patient. Patient does have normal gait with no tenderness and no joint swelling. No ecchymosis. no joint redness or swelling. Not warm to touch. No signs of cellulites present. Patient received a knee immobilizer and crutches and was educated by RN how to use crutches. Patient was instructed to RICE therapy. Patient is discharged with Motrin and Tylenol #3. At time of discharge, the patient does not seem toxic or ill in appearance. No acute signs of distress noted. Patient agrees to discharge treatment plan of care. No further questions noted by the patient. Critical care attestation.: If time is entered above; I have spent that time in minutes in the direct care of this critically ill patient, excluding procedure time. ED Disposition Clinical Impression: Strain of finger, left Strain of right knee and leg Qualifiers: Encounter type: initial encounter Qualified Code(s): S86.911A - Strain of unspecified muscle(s) and tendon(s) at lower leg level, right leg, initial encounter Disposition: TO HOME OR SELFCARE Is pt being admited?: No Does the pt Need Aspirin: No Condition: Stable Instructions: Crutch Instructions (ED), Knee Pain (ED), RICE Therapy (ED), Knee Immobilizer (ED) Additional Instructions: Follow-up with a orthopedic doctor in 3-5 days or if symptoms worsen and continue return to emergency room as soon as possible. Prescriptions: Acetaminophen/Codeine [Tylenol /Codeine # 3 tab] 1 tab PO Q6H PRN #12 tab PRN Reason: Pain , Severe (7-10) Ibuprofen [Motrin] 600 mg PO Q8H PRN #20 tablet PRN Reason: Pain Referrals: PRIMARY CARE, [Primary Care Provider] - 3-5 Days LINO DRAKE MD [Staff Physician] - 3-[address] [facility] [Outside] - 3-5 Days ZEV COYLE MD [Staff Physician] - 3-5 Days Forms: Work/School Release Form(ED)
--- NOTE | 2018-05-29 00:38 | XRay Report ---
FINAL REPORT PROCEDURE: XR SPINE CERVICAL 2-3V TECHNIQUE: Cervical spine radiographs, AP, lateral, and open-mouth odontoid views. CPT 45865 HISTORY: neck pain COMPARISON: No prior studies are available for comparison. FINDINGS: Prevertebral soft tissues: Normal . Alignment: Normal . Vertebral body heights/Disk spaces: Normal . Fracture(s): None . Facets: Normal . Bone mineralization: Normal . IMPRESSION: Normal Examination
--- NOTE | 2018-05-29 00:39 | XRay Report ---
FINAL REPORT PROCEDURE: XR HAND 2V LT TECHNIQUE: LEFT hand radiographs, AP and lateral views. CPT 29344-KI HISTORY: Left thumb pain COMPARISON: No prior studies are available for comparison. FINDINGS: Fracture (s) and/or Dislocation(s): None . Alignment: Normal . Joint space(s): Normal . Soft tissues: Normal . Bone mineralization: Normal . Foreign bodies: None . IMPRESSION: Normal Examination .
--- NOTE | 2018-05-29 00:42 | XRay Report ---
FINAL REPORT PROCEDURE: XR ANKLE 2V RT TECHNIQUE: RIGHT ankle radiographs, AP and lateral views. HISTORY: Right ankle pain COMPARISON: No prior studies are available for comparison. FINDINGS: Fracture (s) and/or Dislocation(s): None. Alignment: Normal. Joint space(s): Normal. Soft tissues: Normal. Bone mineralization: Normal. Foreign bodies: Normal. Calcaneal spurring: Normal. IMPRESSION: Normal Examination .
--- NOTE | 2018-05-29 00:45 | XRay Report ---
FINAL REPORT PROCEDURE: XR KNEE 1-2V RT TECHNIQUE: RIGHT knee radiographs, AP and lateral views. CPT 56331 HISTORY: Right knee pain COMPARISON: No prior studies are available for comparison. FINDINGS: Fracture (s) and/or Dislocation(s): There is defect in the superior lateral aspect of the patella which could be fracture or bipartite variation. The femur, tibia and fibula are intact.. Alignment: Normal . Joint space(s): Normal . Soft tissues: Normal . Bone mineralization: Normal . Foreign bodies: None . IMPRESSION: There is defect in the superior lateral aspect of the patella which could be fracture or bipartite variation. The femur, tibia and fibula are intact.. There is no joint dislocation. There is no soft tissue swelling or joint effusion..
--- NOTE | 2018-05-29 00:46 | XRay Report ---
FINAL REPORT PROCEDURE: XR TIBIA FIBULA 2V RT TECHNIQUE: RIGHT tibia and fibula radiographs, AP and lateral views. CPT 97250 HISTORY: right tib/fib pain COMPARISON: No prior studies are available for comparison. FINDINGS: Fracture (s) and/or Dislocation(s): None . Joint space(s): Normal . Soft tissues: Normal . Bone mineralization: Normal . Foreign bodies: None . IMPRESSION: Normal Examination.
[2018-05-29 08:45] VITALS: BP 136/72
== END 2018-05-29 01:09 | disposition home or self-care (01) ==
LOC: ED 19:05
DX: S86.911A Strain of unspecified muscle(s) and tendon(s) at lower leg level, right leg, initial encounter (principal); S56.312A Strain of extensor or abductor muscles, fascia and tendons of left thumb at forearm level, initial encounter; F17.200 Nicotine dependence, unspecified, uncomplicated; W10.9XXA Fall (on) (from) unspecified stairs and steps, initial encounter; Y93.89 Activity, other specified; Y92.89 Other specified places as the place of occurrence of the external cause; Y99.8 Other external cause status
CPT/HCPCS: 72040; 81025; 99284

== ENCOUNTER 2019-02-07 11:26 | Emergency (ER) | payer MEDICAID ==
--- NOTE | 2019-02-07 11:38 | Event Note ---
ED Screening Note Date of service: 02/07/19 Time: 11:36 ED Screening Note: 33 y/o female comes in reporting that she hears voices. She reports that she wants to cut her baby out of herself. Patient has been off of her psych meds for 3 weeks since she has been . This initial assessment/diagnostic orders/clinical plan/treatment(s) is/are subject to change based on patients health status, clinical progression and re- assessment by fellow clinical providers in the ED. Further treatment and workup at subsequent clinical providers discretion. Patient/guardian urged not to elope from the ED as their condition may be serious if not clinically assessed and managed. Initial orders include:
[2019-02-07 12:21] LABS: Basophils # (Auto) 0.1 K/mm3 (0.0-0.1); Basophils % (Auto) 0.5 % (0.0-1.8); Eosinophils # (Auto) 0.1 K/mm3 (0.0-0.4); Eosinophils % (Auto) 0.5 % (0.0-4.3); Hematocrit 37.3 % (30.3-42.9); Hemoglobin 13.4 gm/dl (10.1-14.3); Lymphocytes # (Auto) 1.8 K/mm3 (1.2-5.4); Lymphocytes % (Auto) 17.7 % (13.4-35.0); Mean Corpuscular HGB Conc 36 % (30-34); Mean Corpuscular Volume 85 fl (79-97); Monocytes # (Auto) 0.4 K/mm3 (0.0-0.8); Monocytes % (Auto) 4.3 % (0.0-7.3); Platelet Count 209 K/mm3 (140-440); Red Cell Distribution Width 14.4 % (13.2-15.2)
[2019-02-07 12:41] LABS: Alanine Aminotransferase 17 units/L (7-56); Albumin 4.1 g/dL (3.9-5); BUN/Creatinine Ratio 14; Blood Urea Nitrogen 7 mg/dL (7-17); Calcium 9.4 mg/dL (8.4-10.2); Hemolysis Index 10
--- NOTE | 2019-02-07 13:03 | Emergency Department Report ---
ED Psych HPI - General Chief Complaint: Psych Stated Complaint: EVALUATION Time Seen by Provider: 02/07/19 12:08 Source: patient Mode of arrival: Ambulatory Limitations: No Limitations - History of Present Illness Initial Comments: 33-year-old female with a past medical history of schizophrenia who is currently presents to the hospital with psychosis and suicidal ideation. Patient stopped taking her schizophrenia medication when she found out she was . Voices are getting worse entirely her to hurt herself. Plan is needed to drink a toxic substance or overdose. She has tried to shoot herself in the past. She denies any physical complaints. - Related Data Previous Rx's Medication Instructions Recorded Last Taken Type Naproxen [Naprosyn TAB] 500 mg PO BID #20 tablet 06/28/14 Unknown Rx Ondansetron [Zofran Odt] 4 mg PO Q6H #10 tab.rapdis 06/28/14 Unknown Rx Haloperidol [Haldol] 2 mg PO QDAY #30 tablet 02/08/15 Unknown Rx diphenhydrAMINE [Benadryl] 50 mg PO QHS #30 capsule 02/08/15 Unknown Rx Acetaminophen/Codeine [Tylenol #3] 1 tab PO Q6H PRN #10 tab 03/28/15 Unknown Rx Promethazine [Phenergan TAB] 25 mg PO Q6HR PRN #12 tab 03/28/15 Unknown Rx Doxylamine Succinate/Vit B6 1 each PO Q6HR PRN #30 tablet. 12/10/15 Unknown Rx [Diclegis Dr 10-10 mg Tablet] Nitrofurantoin [place]/M-Cryst 100 mg PO Q12HR #13 capsule 12/10/15 Unknown Rx [Macrobid CAP] Vit Calc,Iron,Folic 1 each PO QDAY #30 tablet 12/10/15 Unknown Rx [ Vitamins] Hydrocortisone 2.5% [Hytone 2.5% 1 applicatio TP TID PRN #1 tube 04/18/17 Unknown Rx CREAM] predniSONE [Deltasone] 20 mg PO QDAY #5 tab 04/18/17 Unknown Rx Cyclobenzaprine [Flexeril] 10 mg PO TID PRN #12 tablet 02/11/18 Unknown Rx Ibuprofen [Motrin] 600 mg PO Q8H PRN #20 tablet 02/11/18 Unknown Rx HYDROcodone/APAP 5-325 [[place] 1 each PO Q6HR PRN #5 tablet 03/27/18 Unknown Rx 5/325] Acetaminophen/Codeine [Tylenol 1 tab PO Q6H PRN #12 tab 05/29/18 Unknown Rx /Codeine # 3 tab] Ibuprofen [Motrin] 600 mg PO Q8H PRN #20 tablet 05/29/18 Unknown Rx Quetiapine Fumarate [Seroquel] 100 mg PO QHS #30 tablet 07/05/18 Unknown Rx Allergies Allergy/AdvReac Type Severity Reaction Status Date / Time No Known Allergies Allergy Verified 02/07/19 11:34 ED Review of Systems ROS: Stated complaint: EVALUATION Other details as noted in HPI ED Past Medical Hx - Past Medical History Previous Medical History?: Yes Hx Psychiatric Treatment: Yes (schizophrenia) Additional medical history: Vaginal delivery x 3, Miscarriage, excema - Surgical History Past Surgical History?: Yes Additional Surgical History: D&C - Social History Smoking Status: Never Smoker Substance Use Type: None - Medications Home Medications: Home Medications Medication Instructions Recorded Confirmed Last Taken Type Naproxen [Naprosyn TAB] 500 mg PO BID #20 tablet 06/28/14 Unknown Rx Ondansetron [Zofran Odt] 4 mg PO Q6H #10 tab.rapdis 06/28/14 Unknown Rx Haloperidol [Haldol] 2 mg PO QDAY #30 tablet 02/08/15 Unknown Rx diphenhydrAMINE [Benadryl] 50 mg PO QHS #30 capsule 02/08/15 Unknown Rx Acetaminophen/Codeine [Tylenol #3] 1 tab PO Q6H PRN #10 tab 03/28/15 Unknown Rx Promethazine [Phenergan TAB] 25 mg PO Q6HR PRN #12 tab 03/28/15 Unknown Rx Doxylamine Succinate/Vit B6 1 each PO Q6HR PRN #30 tablet. 12/10/15 Unknown Rx [Dicomero Moore 10-10 mg Tablet] Nitrofurantoin [place]/M-Cryst 100 mg PO Q12HR #13 capsule 12/10/15 Unknown Rx [Macrobid CAP] Vit Calc,Iron,Folic 1 each PO QDAY #30 tablet 12/10/15 Unknown Rx [ Vitamins] Hydrocortisone 2.5% [Hytone 2.5% 1 applicatio TP TID PRN #1 tube 04/18/17 Unknown Rx CREAM] predniSONE [Deltasone] 20 mg PO QDAY #5 tab 04/18/17 Unknown Rx Cyclobenzaprine [Flexeril] 10 mg PO TID PRN #12 tablet 02/11/18 Unknown Rx Ibuprofen [Motrin] 600 mg PO Q8H PRN #20 tablet 02/11/18 Unknown Rx HYDROcodone/APAP 5-325 [[place] 1 each PO Q6HR PRN #5 tablet 03/27/18 Unknown Rx 5/325] Acetaminophen/Codeine [Tylenol 1 tab PO Q6H PRN #12 tab 05/29/18 Unknown Rx /Codeine # 3 tab] Ibuprofen [Motrin] 600 mg PO Q8H PRN #20 tablet 05/29/18 Unknown Rx Quetiapine Fumarate [Seroquel] 100 mg PO QHS #30 tablet 07/05/18 Unknown Rx ED Physical Exam - General Limitations: No Limitations ED Course Vital Signs 02/07/19 11:32 Temperature 98.5 F Pulse Rate 98 H Respiratory 18 Rate Blood Pressure 119/74 O2 Sat by Pulse 100 Oximetry ED Medical Decision Making - Lab Data Result diagrams: 02/07/19 11:59 02/07/19 11:59 Lab Results 02/07/19 02/07/19 02/07/19 Range/Units 11:59 11:59 11:59 WBC 10.3 (4.5-11.0) K/mm3 RBC 4.40 (3.65-5.03) M/mm3 Hgb 13.4 (10.1-14.3) gm/dl Hct 37.3 (30.3-42.9) % MCV 85 (79-97) fl MCH 31 (28-32) pg MCHC 36 H (30-34) % RDW 14.4 (13.2-15.2) % Plt Count 209 (140-440) K/mm3 Lymph % (Auto) 17.7 (13.4-35.0) % [place] % (Auto) 4.3 (0.0-7.3) % Eos % (Auto) 0.5 (0.0-4.3) % Baso % (Auto) 0.5 (0.0-1.8) % Lymph # 1.8 (1.2-5.4) K/mm3 [place] # 0.4 (0.0-0.8) K/mm3 Eos # 0.1 (0.0-0.4) K/mm3 Baso # 0.1 (0.0-0.1) K/mm3 Seg Neutrophils % 77.0 H (40.0-70.0) % Seg Neutrophils # 8.0 H (1.8-7.7) K/mm3 Sodium 133 L (137-145) mmol/L Potassium 3.4 L (3.6-5.0) mmol/L Chloride 99.1 (98-107) mmol/L Carbon Dioxide 21 L (22-30) mmol/L Anion Gap 16 mmol/L BUN 7 (7-17) mg/dL Creatinine 0.5 L (0.7-1.2) mg/dL Estimated GFR > 60 ml/min BUN/Creatinine Ratio 14 % Glucose 108 H (65-100) mg/dL Calcium 9.4 (8.4-10.2) mg/dL Total Bilirubin 0.50 (0.1-1.2) mg/dL AST 14 (5-40) units/L ALT 17 (7-56) units/L Alkaline Phosphatase 39 (35-129) units/L Total Protein 7.9 (6.3-8.2) g/dL Albumin 4.1 (3.9-5) g/dL Albumin/Globulin Ratio 1.1 % TSH 0.178 L (0.270-4.200) mlU/mL HCG, Quant (0-4) mIU/mL Urine Color (Yellow) Urine Turbidity (Clear) Urine pH (5.0-7.0) Ur Specific [place] (1.003-1.030) Urine Protein (Negative) mg/dL Urine Glucose (UA) (Negative) mg/dL Urine Ketones (Negative) mg/dL Urine Blood (Negative) Urine Nitrite (Negative) Urine Bilirubin (Negative) Urine Urobilinogen (<2.0) mg/dL Ur Leukocyte Esterase (Negative) Urine WBC (Auto) (0.0-6.0) /HPF Urine RBC (Auto) (0.0-6.0) /HPF U Epithel Cells (Auto) (0-13.0) /HPF Urine Bacteria (Auto) (Negative) /HPF Urine Mucus /HPF Salicylates (2.8-20.0) mg/dL Urine Opiates Screen Urine Methadone Screen Acetaminophen (10.0-30.0) ug/mL Ur Barbiturates Screen Ur Phencyclidine Scrn Ur Amphetamines Screen U Benzodiazepines Scrn Urine Cocaine Screen U Marijuana (THC) Screen Drugs of Abuse Note Plasma/Serum Alcohol (0-0.07) % 02/07/19 02/07/19 02/07/19 Range/Units 11:59 11:59 11:59 WBC (4.5-11.0) K/mm3 RBC (3.65-5.03) M/mm3 Hgb (10.1-14.3) gm/dl Hct (30.3-42.9) % MCV (79-97) fl MCH (28-32) pg MCHC (30-34) % RDW (13.2-15.2) % Plt Count (140-440) K/mm3 Lymph % (Auto) (13.4-35.0) % [place] % (Auto) (0.0-7.3) % Eos % (Auto) (0.0-4.3) % Baso % (Auto) (0.0-1.8) % Lymph # (1.2-5.4) K/mm3 [place] # (0.0-0.8) K/mm3 Eos # (0.0-0.4) K/mm3 Baso # (0.0-0.1) K/mm3 Seg Neutrophils % (40.0-70.0) % Seg Neutrophils # (1.8-7.7) K/mm3 Sodium (137-145) mmol/L Potassium (3.6-5.0) mmol/L Chloride (98-107) mmol/L Carbon Dioxide (22-30) mmol/L Anion Gap mmol/L BUN (7-17) mg/dL Creatinine (0.7-1.2) mg/dL Estimated GFR ml/min BUN/Creatinine Ratio % Glucose (65-100) mg/dL Calcium (8.4-10.2) mg/dL Total Bilirubin (0.1-1.2) mg/dL AST (5-40) units/L ALT (7-56) units/L Alkaline Phosphatase (35-129) units/L Total Protein (6.3-8.2) g/dL Albumin (3.9-5) g/dL Albumin/Globulin Ratio % TSH (0.270-4.200) mlU/mL HCG, Quant 312377 H (0-4) mIU/mL Urine Color (Yellow) Urine Turbidity (Clear) Urine pH (5.0-7.0) Ur Specific [place] (1.003-1.030) Urine Protein (Negative) mg/dL Urine Glucose (UA) (Negative) mg/dL Urine Ketones (Negative) mg/dL Urine Blood (Negative) Urine Nitrite (Negative) Urine Bilirubin (Negative) Urine Urobilinogen (<2.0) mg/dL Ur Leukocyte Esterase (Negative) Urine WBC (Auto) (0.0-6.0) /HPF Urine RBC (Auto) (0.0-6.0) /HPF U Epithel Cells (Auto) (0-13.0) /HPF Urine Bacteria (Auto) (Negative) /HPF Urine Mucus /HPF Salicylates (2.8-20.0) mg/dL Urine Opiates Screen Urine Methadone Screen Acetaminophen < 5.0 L (10.0-30.0) ug/mL Ur Barbiturates Screen Ur Phencyclidine Scrn Ur Amphetamines Screen U Benzodiazepines Scrn Urine Cocaine Screen U Marijuana (THC) Screen Drugs of Abuse Note Plasma/Serum Alcohol < 0.01 (0-0.07) % 02/07/19 02/07/19 02/07/19 Range/Units 11:59 Unknown Unknown WBC (4.5-11.0) K/mm3 RBC (3.65-5.03) M/mm3 Hgb (10.1-14.3) gm/dl Hct (30.3-42.9) % MCV (79-97) fl MCH (28-32) pg MCHC (30-34) % RDW (13.2-15.2) % Plt Count (140-440) K/mm3 Lymph % (Auto) (13.4-35.0) % [place] % (Auto) (0.0-7.3) % Eos % (Auto) (0.0-4.3) % Baso % (Auto) (0.0-1.8) % Lymph # (1.2-5.4) K/mm3 [place] # (0.0-0.8) K/mm3 Eos # (0.0-0.4) K/mm3 Baso # (0.0-0.1) K/mm3 Seg Neutrophils % (40.0-70.0) % Seg Neutrophils # (1.8-7.7) K/mm3 Sodium (137-145) mmol/L Potassium (3.6-5.0) mmol/L Chloride (98-107) mmol/L Carbon Dioxide (22-30) mmol/L Anion Gap mmol/L BUN (7-17) mg/dL Creatinine (0.7-1.2) mg/dL Estimated GFR ml/min BUN/Creatinine Ratio % Glucose (65-100) mg/dL Calcium (8.4-10.2) mg/dL Total Bilirubin (0.1-1.2) mg/dL AST (5-40) units/L ALT (7-56) units/L Alkaline Phosphatase (35-129) units/L Total Protein (6.3-8.2) g/dL Albumin (3.9-5) g/dL Albumin/Globulin Ratio % TSH (0.270-4.200) mlU/mL HCG, Quant (0-4) mIU/mL Urine Color Yellow (Yellow) Urine Turbidity Slightly-cloudy (Clear) Urine pH 5.0 (5.0-7.0) Ur Specific [place] 1.023 (1.003-1.030) Urine Protein <15 mg/dl (Negative) mg/dL Urine Glucose (UA) Neg (Negative) mg/dL Urine Ketones Tr (Negative) mg/dL Urine Blood Neg (Negative) Urine Nitrite Neg (Negative) Urine Bilirubin Neg (Negative) Urine Urobilinogen 2.0 (<2.0) mg/dL Ur Leukocyte Esterase Mod (Negative) Urine WBC (Auto) 2.0 (0.0-6.0) /HPF Urine RBC (Auto) 2.0 (0.0-6.0) /HPF U Epithel Cells (Auto) 10.0 (0-13.0) /HPF Urine Bacteria (Auto) 1+ (Negative) /HPF Urine Mucus 2+ /HPF Salicylates < 0.3 L (2.8-20.0) mg/dL Urine Opiates Screen Presumptive negative Urine Methadone Screen Presumptive negative Acetaminophen (10.0-30.0) ug/mL Ur Barbiturates Screen Presumptive negative Ur Phencyclidine Scrn Presumptive negative Ur Amphetamines Screen Presumptive negative U Benzodiazepines Scrn Presumptive negative Urine Cocaine Screen Presumptive negative U Marijuana (THC) Screen Presumptive negative Drugs of Abuse Note Disclamer Plasma/Serum Alcohol (0-0.07) % - Radiology Data Radiology results: report reviewed PROCEDURE: US OB <= 14 WEEKS FETUS TECHNIQUE: Early obstetrical ultrasound performed. Transabdominal imaging HISTORY: , psychosis COMPARISON: None FINDINGS: There is an intrauterine gestational sac seen. It contains a yolk sac and pole. [place]-rump length measurement corresponds to gestational age of 9 weeks 6 days and SHARON of 09/06/2019. cardiac activity seen measured at 182. Right ovary measures 3.3 x 2.2 x 2.6 cm. There is a 1.4 cm right corpus luteal cyst. Left ovary measures 1.9 x 1.3 x 1.5 cm. IMPRESSION: There is a single live intrauterine of approximately 9 weeks 6 days which corresponds to SHARON of 09/06/2019. - Medical Decision Making US confirms 9wk 6 day IUP no abd pain or vag bleeding reported pt not on psychiatric medication due to Increasing psychosis with suicidal ideation. 1013 signed low tsh with pending t4 but no clinical signs of thyrotoxicosis or hypothyroidism. Patient may follow up with a primary care doctor as an outpatient Patient has mild hypokalemia and received IV potassium IV normal saline ordered for mild low sodium - Differential Diagnosis suicidal, homicidal, psychosis Critical Care Time: No Critical care attestation.: If time is entered above; I have spent that time in minutes in the direct care of this critically ill patient, excluding procedure time. ED Disposition Clinical Impression: Planning to commit suicide, Psychosis, Schizophrenia, 9 weeks gestation of , Medical clearance for psychiatric admission Disposition: DC/TX-65 PSY HOSP/PSY UNIT Is pt being admited?: No Condition: Stable Time of Disposition: 15:17
[2019-02-07 13:06] LABS: Bacteria,Urine 1+ /HPF (Negative); Bilirubin,Urine NEG (Negative); Blood,Urine NEG (Negative); Color,Urine Yellow (Yellow); Mucus,Urine 2+ /HPF; Protein,Urine <15 mg/dL mg/dL (Negative)
[2019-02-07 13:14] LABS: Amphetamine Screen,Urine PRESUMPTIVE NEGATIVE; Benzodiazepines Screen,Urine PRESUMPTIVE NEGATIVE; Cannabinoid Screen,Urine PRESUMPTIVE NEGATIVE; Cocaine Screen,Urine PRESUMPTIVE NEGATIVE; Methadone Screen,Urine PRESUMPTIVE NEGATIVE; Opiate Screen,Urine PRESUMPTIVE NEGATIVE
[2019-02-07] MEDS ORDERED: K-DUR PO ONE (13:29)
[2019-02-07] MEDS ORDERED: NACL 0.9% 1000 ML 1,000 ML IV ONE (13:29)
--- NOTE | 2019-02-07 14:56 | Ultrasound Report ---
PROCEDURE: US OB <= 14 WEEKS FETUS TECHNIQUE: Early obstetrical ultrasound performed. Transabdominal imaging HISTORY: , psychosis COMPARISON: None FINDINGS: There is an intrauterine gestational sac seen. It contains a yolk sac and pole. [place]-rump length measurement corresponds to gestational age of 9 weeks 6 days and SHARON of 09/06/2019. cardiac activity seen measured at 182. Right ovary measures 3.3 x 2.2 x 2.6 cm. There is a 1.4 cm right corpus luteal cyst. Left ovary measu res 1.9 x 1.3 x 1.5 cm. IMPRESSION: There is a single live intrauterine of approximately 9 weeks 6 days which corresponds to ED D of 09/06/2019. This document is electronically signed by Kristina Peterson MD., February 07 2019 02:53:32 PM ET
[2019-02-07] MEDS ORDERED: TYLENOL PO PRN (20:25)
[2019-02-07 21:01] VITALS: BP 104/71
== END 2019-02-07 23:11 ==
LOC: EEVIPCON 11:26 → ED 11:26
DX: O99.341 Other mental disorders complicating pregnancy, first trimester (principal); F53.1 Puerperal psychosis; Z98.890 Other specified postprocedural states; Z79.899 Other long term (current) drug therapy; Z3A.09 9 weeks gestation of pregnancy
CPT/HCPCS: 36415; 76801; 80053; 80307; 81001; 84436; 84443; 84702; 85025; 99285; G0480; J7030; 80320

== ENCOUNTER 2019-03-26 12:38 | Emergency (ER) | payer MEDICAID ==
--- NOTE | 2019-03-26 13:03 | Event Note ---
ED Screening Note ED Screening Note: 16 w PREG THIS SUN lmp unclear; off depo-- DecemberSep 07 due; they keep changing [facility] pink vag dc [id number] normal preg to date; has got care movement today no dysuria suprapubic pain This initial assessment/diagnostic orders/clinical plan/treatment(s) is/are subject to change based on patients health status, clinical progression and re- assessment by fellow clinical providers in the ED. Further treatment and workup at subsequent clinical providers discretion. Patient/guardian urged not to elope from the ED as their condition may be serious if not clinically assessed and managed. Initial orders include: labs ua us
[2019-03-26 13:04] VITALS: BP 108/57
--- NOTE | 2019-03-26 13:45 | Emergency Department Report ---
ED Female HPI - General Chief complaint: Abdominal Pain Stated complaint: 16WKS /CRAMPING/PAIN Time Seen by Provider: 03/26/19 13:00 Source: patient Mode of arrival: Ambulatory Limitations: No Limitations - History of Present Illness Initial comments: Amaya is a 33-year-old female who presents with vaginal spotting pressure and cramping for the past 2 days. She is currently 16 weeks . She has required Tylenol for moderately severe symptoms. [facility] is [facility]. Denies fever. She is very worried. Her last 2 pregnancies resulted in miscarriage. She underwent D&C in the past. She has been categorized as a high risk . + movement Estimated due date 09/07/2018 Complaint: vaginal bleeding -: Gradual, days(s) (2) Severity: moderate Quality: cramping Consistency: constant Improves with: medication Are you Now?: Yes Associated Symptoms: vaginal bleeding - Related Data Home Medications Medication Instructions Recorded Confirmed Last Taken Pnv No.121/Iron/Folic Acid 1 each PO DAILY 02/07/19 02/07/19 02/07/19 [ Multivitamin Tablet] Allergies Allergy/AdvReac Type Severity Reaction Status Date / Time No Known Allergies Allergy Verified 02/07/19 11:34 ED Review of Systems ROS: Stated complaint: 16WKS /CRAMPING/PAIN Other details as noted in HPI Comment: All other systems reviewed and negative Constitutional: denies: fever, malaise Respiratory: denies: cough Cardiovascular: denies: chest pain Genitourinary: denies: dysuria ED Past Medical Hx - Past Medical History Previous Medical History?: Yes Hx Psychiatric Treatment: Yes (schizophrenia) Additional medical history: Vaginal delivery x 3, Miscarriage, excema - Surgical History Past Surgical History?: Yes Additional Surgical History: D&C - Social History Smoking Status: Never Smoker Substance Use Type: None - Medications Home Medications: Home Medications Medication Instructions Recorded Confirmed Last Taken Type Pnv No.121/Iron/Folic Acid 1 each PO DAILY 02/07/19 02/07/19 02/07/19 History [ Multivitamin Tablet] ED Physical Exam - General Limitations: No Limitations General appearance: alert, in no apparent distress - Head Head exam: Present: atraumatic, normocephalic - Eye Eye exam: Present: normal appearance - ENT ENT exam: Present: mucous membranes moist - Neck Neck exam: Present: normal inspection - Respiratory Respiratory exam: Present: normal lung sounds bilaterally. Absent: respiratory distress - Cardiovascular Cardiovascular Exam: Present: regular rate, normal rhythm. Absent: systolic murmur, diastolic murmur, rubs, gallop - GI/Abdominal GI/Abdominal exam: Present: soft, distended (gravid), normal bowel sounds. Absent: tenderness, guarding, rebound - Extremities Exam Extremities exam: Present: normal inspection - Back Exam Back exam: Present: normal inspection - Neurological Exam Neurological exam: Present: alert, oriented X3 - Psychiatric Psychiatric exam: Present: normal affect, normal mood - Skin Skin exam: Present: warm, dry, intact, normal color. Absent: rash ED Course Vital Signs 03/26/19 13:01 Temperature 98.1 F Pulse Rate 101 H Respiratory 16 Rate Blood Pressure 108/57 O2 Sat by Pulse 100 Oximetry ED Medical Decision Making - Medical Decision Making Mrs. Huang presents with threatened miscarriage. According to EMR Blood type B positive. I performed bedside US> I was able to visualize cardiac activity and movement. Mother was reassured dc'd home Critical care attestation.: If time is entered above; I have spent that time in minutes in the direct care of this critically ill patient, excluding procedure time. ED Disposition Clinical Impression: Threatened miscarriage Disposition: DC-01 TO HOME OR SELFCARE Is pt being admited?: No Does the pt Need Aspirin: No Condition: Stable Instructions: Threatened Miscarriage (ED)
[2019-03-26 14:49] LABS: Bacteria,Urine 1+ /HPF (Negative); Bilirubin,Urine NEG (Negative); Blood,Urine SM (Negative); Calcium Oxalate Crystals,Urine 1+; Color,Urine Yellow (Yellow); Mucus,Urine 3+ /HPF; Protein,Urine <15 mg/dL mg/dL (Negative); Urobilinogen,Urine < 2.0 mg/dL (<2.0)
== END 2019-03-26 14:04 | disposition home or self-care (01) ==
LOC: ED 12:38
DX: O20.0 Threatened abortion (principal); F20.9 Schizophrenia, unspecified; Z3A.16 16 weeks gestation of pregnancy
CPT/HCPCS: 81001

== ENCOUNTER 2020-12-11 04:55 | Emergency (ER) | payer SELFPAY ==
[2020-12-11 05:05] VITALS: BP 129/77
--- NOTE | 2020-12-11 06:16 | Emergency Department Report ---
Chief Complaint: Recheck/Abnormal Lab/Rx Stated Complaint: ANXIETY ATTACK Time Seen by Provider: 12/11/20 06:07 - HPI History of Present Illness: 35-year-old -[place] female presents to the emergency room reporting she has anxiety thinking that someone has switched her anxiety pills. Patient states she used to take Xanax 2 mg which are yellow bars and her bottle had white bars. Patient states her back was upstairs while she was entertaining with her friends. Patient comes in concerned that she may have had her medications switched by someone. Patient states that she was concerned that was mixed with fentanyl or laced with heroin. Patient denies any chest pain no shortness of breathing no headache no nausea no vomiting no abdominal pain. - Exam Vital Signs: Vital Signs 12/11/20 05:04 Temperature 99.3 F Pulse Rate 102 H Respiratory 18 Rate Blood Pressure 129/77 O2 Sat by Pulse 99 Oximetry Physical Exam: General: Awake, appropriately interactive, no acute distress. Neck: Supple. Full range of motion intact. Cardiovascular: Normal peripheral perfusion. Pulmonary: No respiratory distress. Patient is speaking normally without use of accessory muscles. Skin: No apparent rashes or lesions. Neurological: No facial asymmetry. Speech is clear. Follows commands. Patient is alert and oriented. Musculoskeletal: Full range of motion, no crepitus. No tenderness to palpate nonerythematous no edema test appreciated. Able to bear weight and ambulate without difficulty. Distal neurovascular and motor/sensory function is intact. Psych: Cooperative. Appropriate mood and affect. MSE screening note: Focused history and physical exam performed. Due to findings the following was ordered: 35-year-old -[place] female presents to the emergency room reporting she has anxiety thinking that someone has switched her anxiety pills. Patient states she used to take Xanax 2 mg which are yellow bars and her bottle had white bars. Patient states her back was upstairs while she was entertaining with her friends. Patient comes in concerned that she may have had her medications switched by someone. Patient states that she was concerned that was mixed with fentanyl or laced with heroin. Patient denies any chest pain no shortness of breathing no headache no nausea no vomiting no abdominal pain. Patient and I looked up Xanax white bar that shows that it is 10 mg. Discussed with patient her vital signs are stable. Recommend for her to follow-up with her mental health provider. ED Disposition for MSE Disposition: Martina-[id number] MED SCREENING EXAM-LEFT Is pt being admited?: No Does the pt Need Aspirin: No Condition: Stable Instructions: Panic Attack, [id number], Generalized Anxiety Disorder, Adult Additional Instructions: Recommend to follow-up with your mental health provider. As well as follow-up with your primary care provider. Increase your fluid intake. Referrals: [facility] [Outside] - 3-5 Days [facility] [Provider Group] - 3-5 Days
== END 2020-12-11 06:25 | disposition left against medical advice (07) ==
LOC: ED 04:55
DX: F41.9 Anxiety disorder, unspecified (principal); Z53.21 Procedure and treatment not carried out due to patient leaving prior to being seen by health care provider